=== PATIENT | male | born 1985 | race African-American/Black ===

== ENCOUNTER 2021-03-17 00:39 | Emergency (ER) | payer SELFPAY ==
[~2021-03-17] VITALS: Ht 167.6 cm; Wt 115.0 kg
[2021-03-17 02:04] VITALS: BP 135/89
== END 2021-03-17 03:47 | disposition home or self-care (01) ==
LOC: ER 00:39
DX: F15.10 Other stimulant abuse, uncomplicated (principal); F16.10 Hallucinogen abuse, uncomplicated
CPT/HCPCS: 99283